=== PATIENT | male | born 1965 | race Asian ===

== ENCOUNTER 2019-11-11 00:18 | Emergency (ER) | payer OTHER ==
[~2019-11-11] VITALS: Ht 170.2 cm; Wt 59.0 kg
[2019-11-11 00:32] VITALS: BP_SYST 146
[2019-11-11 01:20] VITALS: BP_SYST 144
== END 2019-11-11 01:20 ==
LOC: SED 00:18
DX: Z02.89 Encounter for other administrative examinations (principal)
CPT/HCPCS: 99283